=== PATIENT | male | born 1980 ===

== ENCOUNTER 2020-02-12 14:50 | Emergency (ER) | payer BC, OTHER ==
[2020-02-14 12:13] LABS: SARS-CoV-2 MS2 Positive; SARS-CoV-2 N Gene Positive; SARS-CoV-2 S Gene Positive; SARS-CoV-2 by NAA DETECTED (NotDetected); SARS-CoV-2 orf1ab Positive
== END 2020-02-12 15:25 | disposition home or self-care (01) ==
LOC: NAV ERS 14:50
DX: U07.1 COVID-19 (principal); Z20.828 Contact with and (suspected) exposure to other viral communicable diseases; I10 Essential (primary) hypertension; Z79.899 Other long term (current) drug therapy
CPT/HCPCS: 87635; 99283; U0003

== ENCOUNTER 2024-08-21 10:49 | Outpatient (CLI) | payer OTHER | END 2024-08-21 10:50 | disposition home or self-care (01) | LOC: NAV RAD 10:49 | PROVIDERS: ATTEND Nurse Practitioner Family | DX: M25.521 Pain in right elbow (principal) ==